=== PATIENT | male | born 1990 ===

== ENCOUNTER 2016-08-29 16:45 | Emergency (ER) | payer BC, OTHER ==
[2016-08-29 16:53] VITALS: BP 134/82
--- NOTE | 2016-08-29 19:30 | Emergency Department Report ---
Abscess Boil HPI - HPI Chief Complaint: Skin/Abscess/Foreign Body Stated Complaint: PAIN IN BUTT CHEEKS Time Seen by Provider: 08/29/16 19:22 Duration: 2 Days Location: Perianal Severity: Moderate History: Yes Pain, Yes Previous History, No Fever, No Purulent Drainage, No Numbness, No Foreign Body, No Insect Bite HPI: Patient states that he started to notice some swelling and pain in left buttock, near gluteal cleft, 2 days ago and pain has worsened with time and swelling has increased, but denies any erythema, bleeding/drainage and fevers; says he used Berger around his anus 1-2 weeks ago Home Medications: Previous Rx's Medication Instructions Recorded Last Taken Type Cephalexin [Keflex] 500 mg PO Q6HR #40 capsule 08/29/16 Unknown Rx Ibuprofen [Motrin] 600 mg PO Q8H PRN #20 tablet 08/29/16 Unknown Rx Sulfamethoxazole/Trimethoprim 1 each PO BID #20 tablet 08/29/16 Unknown Rx [Bactrim DS TAB] traMADol [Ultram 50 MG tab] 50 mg PO Q6HR PRN #12 tablet 08/29/16 Unknown Rx Allergies/Adverse Reactions: Allergies Allergy/AdvReac Type Severity Reaction Status Date / Time Iodine and Iodide Containing Allergy Hives Verified 08/21/15 19:14 Produc ED Review of Systems ROS: Stated complaint: PAIN IN BUTT CHEEKS Other details as noted in HPI Constitutional: denies: chills, fever Respiratory: denies: shortness of breath Cardiovascular: denies: chest pain Gastrointestinal: denies: nausea, vomiting Musculoskeletal: denies: back pain, myalgia Skin: lesions Neurological: denies: headache ED Past Medical Hx - Past Medical History Hx Asthma: Yes - Social History Smoking Status: Never Smoker Substance Use Type: Alcohol - Medications Home Medications: Home Medications Medication Instructions Recorded Confirmed Last Taken Type Cephalexin [Keflex] 500 mg PO Q6HR #40 capsule 08/29/16 Unknown Rx Ibuprofen [Motrin] 600 mg PO Q8H PRN #20 tablet 08/29/16 Unknown Rx Sulfamethoxazole/Trimethoprim 1 each PO BID #20 tablet 08/29/16 Unknown Rx [Bactrim DS TAB] traMADol [Ultram 50 MG tab] 50 mg PO Q6HR PRN #12 tablet 08/29/16 Unknown Rx ED Abscess Boil Physical Exam - Exam General: Vital signs noted. No distress. Alert and acting appropriately. Size: 2 cm Exam: Yes Tenderness (left buttock, in gluteal cleft - 2 cm area of firmness, no erythema or edema, TTP, no bleeding or drainage), Yes Normal Neurologic Exam , Yes Normal Circulation, No Fluctuance, No Surrounding Cellulites/Erythema, No Lymphangitis, No Crepitation, No Heart Murmur (RRR) Exam: Lungs - CTAB ED Course Vital Signs 08/29/16 16:48 Temperature 98.6 F Pulse Rate 102 H Respiratory 18 Rate Blood Pressure 134/82 O2 Sat by Pulse 97 Oximetry Critical Care Time: No Critical care attestation.: If time is entered above; I have spent that time in minutes in the direct care of this critically ill patient, excluding procedure time. ED Medical Decision Making - Medical Decision Making Discussed with patient that it is not ready for I&D, told him to continue warm soaks and complete ABX; told him to follow up with PCP to make sure he is getting better, he verbalized understanding ED Disposition Clinical Impression: Left buttock abscess Disposition: DISCHARGED TO HOME OR SELFCARE Is pt being admited?: No Does the pt Need Aspirin: No Condition: Good Instructions: Abscess (ED) Additional Instructions: Told patient to avoid Berger around rectum; told him to follow up with PCP Prescriptions: Sulfamethoxazole/Trimethoprim [Bactrim DS TAB] 1 each PO BID #20 tablet Cephalexin [Keflex] 500 mg PO Q6HR #40 capsule Ibuprofen [Motrin] 600 mg PO Q8H PRN #20 tablet PRN Reason: Pain traMADol [Ultram 50 MG tab] 50 mg PO Q6HR PRN #12 tablet PRN Reason: Pain Referrals: PRIMARY CARE,MD [Primary Care Provider] - 3-5 Days [facility] [Outside] - 3-5 Days Forms: Work/School Release Form(ED) Time of Disposition: 19:43 Print Language: SPANISH
== END 2016-08-29 20:15 | disposition home or self-care (01) ==
LOC: ED 16:45
DX: L02.31 Cutaneous abscess of buttock (principal); J45.909 Unspecified asthma, uncomplicated; Z88.8 Allergy status to other drugs, medicaments and biological substances
CPT/HCPCS: 99282